=== PATIENT | male | born 1970 | race African-American/Black ===

== ENCOUNTER 2017-03-16 15:41 | Emergency (ER) | payer SELFPAY ==
[2017-03-16] MEDS ORDERED: Lidocaine 1% 20 ML MDV INJECT ONE (16:30)
[2017-03-16] MEDS ORDERED: Ibuprofen 800 MG Tab PO ONE (17:12)
--- NOTE | 2017-03-16 17:22 | EDM.PDOC ---
ED HPI GENERAL MEDICAL PROBLEM - General Chief Complaint: Lower Extremity Injury/Pain Stated Complaint: SWOLLEN FEET Time Seen by Provider: 03/16/17 16:15 Source of Information: Reports: Patient History Limitations: Reports: No Limitations - History of Present Illness INITIAL COMMENTS - FREE TEXT/NARRATIVE: HISTORY AND PHYSICAL: History of present illness: [38-year-old male with this 2 day history of left toe swelling at the base of the toenail. Local pain only no foot or ankle swelling. No fevers chills sweats or shaking chills. Patient feels well] Review of systems: As per history of present illness and below otherwise all systems reviewed and negative. Past medical history: As per history of present illness and as reviewed below otherwise noncontributory. Surgical history: As per history of present illness and as reviewed below otherwise noncontributory. Social history: No reported history of drug or alcohol abuse. Family history: As per history of present illness and as reviewed below otherwise noncontributory. Physical exam: Well-appearing patient clinically afebrile comfortable appearing HEENT: Normocephalic, atraumatic, pupils normal and symmetrical, supple neck, no meningismus, normal color Lungs: Normal and symmetrical chest wall excursion bilateral with no tachypnea or increased work of breathing, grossly normal chest exam Heart: No tachycardia in triage Abdomen: Normal-appearing, nondistended, no visible mass or asymmetry Pelvis: Normal-appearing Genitourinary: Deferred Rectal exam: Deferred Extremities: Atraumatic, normal use and range of motion, no visible evidence of gross neurovascular compromise . Left great toe with clearly identifiable paronychia with fluctuant area at the base of the toenail. No crepitus. No fluctuance of mid and proximal toe. Remainder of foot normal with no swelling or tenderness and normal painless range of motion of foot and ankle. Neuro: Awake, alert, oriented. Normal and appropriate mental status. Cranial nerves grossly unremarkable. Motor function normal. Nonfocal neurologic exam. Diagnostics: [] Therapeutics: [Procedure: Incision and drainage of paronychia left great toe. By KATHERINE Rodas Patient sitting. Betadine prep a base of toe. Digital block with 1% lidocaine with good anesthesia. #11 blade used to incise the skin at the base of nail] in the mid toe distribution. Positive purulent drainage. Patient tolerated well no consultations Impression: [Paronychia left great toe Incision and drainage of paronychia] Plan: Signs and symptoms consistent with paronychia. Uncomplicated. I&D performed. Patient tolerated well. Ibuprofen given. He is aware to do soaks and follow-up with PCP. Strict return precautions given Definitive disposition and diagnosis as appropriate pending reevaluation and review of above. left big toe Pain Score (Numeric/FACES): 8 - Related Data Allergies Allergy/AdvReac Type Severity Reaction Status Date / Time No Known Allergies Allergy Verified 03/16/17 16:12 Home Meds: Home Meds . [No Known Home Meds] 03/16/17 [History] Past Medical History - Past Health History Medical/Surgical History: Denies Medical/Surgical History Social & Family History - Family History Family Medical History: Noncontributory - Tobacco Use Smoking Status *Q: Never Smoker - Recreational Drug Use Recreational Drug Use: No Review of Systems - Review of Systems Review Of Systems: See Below (GI) ED EXAM, GENERAL - Physical Exam Exam: See Below (History of present illness) Course - Vital Signs Last Recorded V/S: Last Vital Signs Temp 36.1 C 03/16/17 16:13 Pulse 71 03/16/17 16:13 Resp 16 03/16/17 16:13 BP 135/83 03/16/17 16:13 Pulse Ox 97 03/16/17 16:13 - Orders/Labs/Meds Meds: Medications Discontinued Medications Generic Name Dose Route Start Last Admin Trade Name Nereida PRN Reason Stop Dose Admin Ibuprofen 800 mg 03/16/17 17:12 Motrin PO 03/16/17 17:13 ONETIME ONE Lidocaine HCl 20 ml 03/16/17 16:30 03/16/17 16:36 Xylocaine 1% INJECT 03/16/17 16:31 20 ml ONETIME ONE Administration Departure - Departure Time of Disposition: 17:17 Disposition: Home, Self-Care 01 Condition: Good Clinical Impression: Paronychia - Discharge Information Referrals: PCP,Not In Area [Primary Care Provider] - Forms: ED Department Discharge Additional Instructions: You had a paronychia on your left big toe. This is a skin infection at the base of the toenail. Is not clear why sometimes these happen they can also happen on fingers. Bacteria get under the skin and cause a collection of pus which becomes swollen and painful. The cure is to drain the paronychia and continue to do soaks after the procedure to ensure continued drainage. Soak in warm Epsom salts water twice a day until healed. Take ibuprofen 800 mg every 6 hours as well as Tylenol if needed for pain. Return for signs of reinfection, worsening symptoms or fevers.
[2017-03-16 19:22] VITALS: BP 138/88
== END 2017-03-16 17:53 | disposition home or self-care (01) ==
LOC: MW.ED 15:41
DX: L03.032 Cellulitis of left toe (principal)
CPT/HCPCS: 10060; 99283; A9270; 99282